=== PATIENT | male | born 1955 | race Caucasian/White ===

== ENCOUNTER → 2020-10-18 11:43 | Outpatient (CLI) | payer OTHER, SELFPAY ==
--- NOTE | 2020-10-18 | DI.MRI.S_ITS ---
PROCEDURE: MR SHOULDER RT WO CON INDICATIONS: Strain of muscle(s) and tendon(s) of the rotator c TECHNIQUE: Noncontrast oblique coronal T2 fast spin echo with fat saturation, oblique sagittal T1 spin echo and T2 fast spin echo with fat saturation, axial T1 spin echo and T2 fast spin echo with fat saturation through the shoulder. COMPARISON: None. FINDINGS: Image quality: Excellent. Rotator cuff: There is mild supraspinatus and infraspinatus tendinosis with superimposed low-grade partial bursal sided tearing of the infraspinatus tendon at the anterior insertion. The teres minor tendon is intact. There is mild moderate subscapularis tendinosis. A 7 mm hypointense structure posterior to the infraspinatus tendon may represent mild calcific tendinopathy/calcific bursitis. Bones and bursae: No acute bone marrow contusions or fractures. Chronic traction cystic changes are seen in the posterosuperior humeral head and the greater tuberosity near the rotator cuff tendon insertions. There is no significant glenohumeral joint effusion. There is mild to moderate acromioclavicular osteoarthrosis with marginal osteophytes and subchondral cystic changes. A small subacromial/subdeltoid bursal effusion is present. Capsule and soft tissues: There is nondisplaced tearing of the posterosuperior labrum. A lobulated fluid collection is seen adjacent to the labrum measuring approximately 18 x 9 x 31 mm, propagating between the supraspinatus and infraspinatus muscles and extending medially over the glenoid rim into the spinoglenoid notch. No significant supraspinatus or infraspinatus muscle atrophy is seen. The long head of the biceps tendon demonstrates normal location and morphology. There is partial effacement of the fat in the rotator interval. There is mild thickening of the inferior glenohumeral ligament. IMPRESSION: 1. Nondisplaced tearing of the posterosuperior labrum. A probable paralabral cyst is seen measuring 3.1 cm in transverse dimension and extending medially over the glenoid rim into the spinoglenoid notch. No signs of acute or chronic denervation changes are seen in the supraspinatus or infraspinatus muscles. 2. Low-grade partial bursal sided tearing of the infraspinatus tendon at the anterior insertion superimposed on mild supraspinatus and infraspinatus tendinosis. A small hypointense structure posterior to the infraspinatus tendon may represent mild calcific tendinopathy or calcific bursitis. Correlation with any available radiographs is recommended. 3. Mild moderate acromioclavicular joint osteoarthrosis. 4. Partial effacement of the rotator interval fat and mild thickening of the inferior glenohumeral ligament are nonspecific, but can be seen in the setting of the clinical syndrome of adhesive capsulitis. Dictated by: Nasir Mohan M.D. on 10/18/2020 at 13:21 Approved by: Nasir Mohan M.D. on 10/18/2020 at 13:48
== END ==
PROVIDERS: PCP Family Medicine; Referring Provider Family Medicine; Visit Provider Family Medicine
DX: S46.011A Strain of muscle(s) and tendon(s) of the rotator cuff of right shoulder, initial encounter (principal); M19.011 Primary osteoarthritis, right shoulder; S43.491A Other sprain of right shoulder joint, initial encounter
CPT/HCPCS: 73221